=== PATIENT | female | born 1940 | race Caucasian/White ===

== ENCOUNTER 2019-10-16 14:41 | Inpatient (IN) | payer MEDICARE ==
[2019-10-16] MEDS ORDERED: hydrALAZINE 20 MG/ML VIAL SLOW IVP PRN (19:15)
[2019-10-16] MEDS ORDERED: Haloperidol Lactate 5 MG/ML VIAL IM PRN (19:15)
[2019-10-16] MEDS: Famotidine 20 MG TAB PO SCH (21:16)
[2019-10-16] MEDS: Apixaban 5 MG TAB PO SCH (21:16)
[2019-10-16] MEDS: Lisinopril 5 MG TAB PO SCH (21:16)
[2019-10-16] MEDS: Ciprofloxacin 500 MG TAB PO SCH (21:16)
[2019-10-16] MEDS: Atorvastatin Calcium 40 MG TAB PO SCH (21:16)
[2019-10-16] MEDS: Metoprolol Tartrate 25 MG TAB PO SCH (21:16)
[2019-10-17] MEDS: Ciprofloxacin 500 MG TAB PO SCH ×2 (05:57→20:28)
[2019-10-17] MEDS ORDERED: FLU VACC QS2019-20(6MOS UP)/PF 60 MCG/0.5 ML SYRINGE IM ONE (09:00)
[2019-10-17] MEDS: Lisinopril 5 MG TAB PO SCH ×2 (10:47→20:27)
[2019-10-17] MEDS: Metoprolol Tartrate 25 MG TAB PO SCH ×2 (10:47→20:27)
[2019-10-17] MEDS: Famotidine 20 MG TAB PO SCH ×2 (10:47→20:27)
[2019-10-17] MEDS: Apixaban 5 MG TAB PO SCH ×2 (10:47→20:28)
[2019-10-17] MEDS: Acetaminophen 325 MG TAB PO PRN (10:54)
[2019-10-17] MEDS: Nystatin 500,000 UNITS/5 ML UDCUP SSW SCH ×2 (18:22→20:26)
[2019-10-17] MEDS: Atorvastatin Calcium 40 MG TAB PO SCH (20:27)
[2019-10-18] MEDS: Ciprofloxacin 500 MG TAB PO SCH ×2 (05:30→21:01)
[2019-10-18] MEDS: Lisinopril 5 MG TAB PO SCH ×2 (10:34→21:01)
[2019-10-18] MEDS: Nystatin 500,000 UNITS/5 ML UDCUP SSW SCH ×4 (10:35→21:01)
[2019-10-18] MEDS: Metoprolol Tartrate 25 MG TAB PO SCH ×2 (10:35→21:01)
[2019-10-18] MEDS: Famotidine 20 MG TAB PO SCH ×2 (10:35→21:01)
[2019-10-18] MEDS: Apixaban 5 MG TAB PO SCH ×2 (10:35→21:01)
[2019-10-18] MEDS: Acetaminophen 325 MG TAB PO PRN (13:00)
[2019-10-18] MEDS: Atorvastatin Calcium 40 MG TAB PO SCH (21:01)
[2019-10-19] MEDS: Ciprofloxacin 500 MG TAB PO SCH ×2 (06:04→20:49)
[2019-10-19] MEDS: Famotidine 20 MG TAB PO SCH ×2 (08:36→20:49)
[2019-10-19] MEDS: Tamsulosin HCl 0.4 MG CAP PO SCH (08:36)
[2019-10-19] MEDS: Nystatin 500,000 UNITS/5 ML UDCUP SSW SCH ×4 (08:36→20:49)
[2019-10-19] MEDS: Metoprolol Tartrate 25 MG TAB PO SCH ×2 (08:38→20:49)
[2019-10-19] MEDS: Lisinopril 5 MG TAB PO SCH ×2 (08:38→20:49)
[2019-10-19] MEDS: Apixaban 5 MG TAB PO SCH ×2 (08:38→20:49)
[2019-10-19] MEDS: Polyethylene Glycol 3350 17 GM Packet PO PRN (13:42)
[2019-10-19] MEDS: Atorvastatin Calcium 40 MG TAB PO SCH (20:49)
[2019-10-20] MEDS: Ciprofloxacin 500 MG TAB PO SCH ×2 (05:09→20:39)
[2019-10-20] MEDS: Apixaban 5 MG TAB PO SCH ×2 (10:06→20:40)
[2019-10-20] MEDS: Metoprolol Tartrate 25 MG TAB PO SCH ×2 (10:06→20:40)
[2019-10-20] MEDS: Lisinopril 5 MG TAB PO SCH ×2 (10:06→20:38)
[2019-10-20] MEDS: Tamsulosin HCl 0.4 MG CAP PO SCH (10:06)
[2019-10-20] MEDS: Nystatin 500,000 UNITS/5 ML UDCUP SSW SCH ×4 (10:06→20:38)
[2019-10-20] MEDS: Famotidine 20 MG TAB PO SCH ×2 (10:06→20:39)
[2019-10-20] MEDS: Atorvastatin Calcium 40 MG TAB PO SCH (20:40)
[2019-10-21] MEDS: Ciprofloxacin 500 MG TAB PO SCH ×2 (06:03→20:39)
[2019-10-21] MEDS: Apixaban 5 MG TAB PO SCH ×2 (08:31→20:39)
[2019-10-21] MEDS: Nystatin 500,000 UNITS/5 ML UDCUP SSW SCH ×4 (08:31→20:50)
[2019-10-21] MEDS: Metoprolol Tartrate 25 MG TAB PO SCH ×2 (08:31→20:41)
[2019-10-21] MEDS: Tamsulosin HCl 0.4 MG CAP PO SCH (08:31)
[2019-10-21] MEDS: Famotidine 20 MG TAB PO SCH ×2 (08:31→20:37)
[2019-10-21] MEDS: Lisinopril 5 MG TAB PO SCH ×2 (08:31→20:40)
[2019-10-21] MEDS ORDERED: Haloperidol Lactate 5 MG/ML VIAL ONE (16:34)
[2019-10-21] MEDS: Atorvastatin Calcium 40 MG TAB PO SCH (20:39)
[2019-10-22] MEDS: Ciprofloxacin 500 MG TAB PO SCH ×2 (05:20→21:16)
[2019-10-22] MEDS: Apixaban 5 MG TAB PO SCH ×2 (08:20→21:20)
[2019-10-22] MEDS: Famotidine 20 MG TAB PO SCH ×2 (08:20→21:17)
[2019-10-22] MEDS: Nystatin 500,000 UNITS/5 ML UDCUP SSW SCH ×4 (08:21→21:16)
[2019-10-22] MEDS: Tamsulosin HCl 0.4 MG CAP PO SCH (08:21)
[2019-10-22] MEDS: Lisinopril 5 MG TAB PO SCH ×2 (08:29→21:20)
[2019-10-22] MEDS: Metoprolol Tartrate 25 MG TAB PO SCH ×2 (08:29→21:20)
[2019-10-22] MEDS: Atorvastatin Calcium 40 MG TAB PO SCH (21:20)
[2019-10-23] MEDS: Ciprofloxacin 500 MG TAB PO SCH ×2 (05:38→20:14)
[2019-10-23] MEDS: Lisinopril 5 MG TAB PO SCH ×2 (08:36→20:13)
[2019-10-23] MEDS: Famotidine 20 MG TAB PO SCH ×2 (08:36→20:13)
[2019-10-23] MEDS: Tamsulosin HCl 0.4 MG CAP PO SCH (08:36)
[2019-10-23] MEDS: Apixaban 5 MG TAB PO SCH ×2 (08:36→20:14)
[2019-10-23] MEDS: Metoprolol Tartrate 25 MG TAB PO SCH ×2 (08:36→20:13)
[2019-10-23] MEDS: Nystatin 500,000 UNITS/5 ML UDCUP SSW SCH ×4 (08:36→20:13)
[2019-10-23] MEDS: Acetaminophen 325 MG TAB PO PRN (10:06)
[2019-10-23] MEDS: Atorvastatin Calcium 40 MG TAB PO SCH (20:14)
[2019-10-24] MEDS: Metoprolol Tartrate 25 MG TAB PO SCH ×2 (09:41→20:38)
[2019-10-24] MEDS: Apixaban 5 MG TAB PO SCH ×2 (09:41→20:37)
[2019-10-24] MEDS: Lisinopril 5 MG TAB PO SCH ×2 (09:45→20:38)
[2019-10-24] MEDS: Nystatin 500,000 UNITS/5 ML UDCUP SSW SCH ×4 (09:46→20:38)
[2019-10-24] MEDS: Tamsulosin HCl 0.4 MG CAP PO SCH (09:46)
[2019-10-24] MEDS: Famotidine 20 MG TAB PO SCH ×2 (09:46→20:37)
[2019-10-24] MEDS: Acetaminophen 325 MG TAB PO PRN (20:37)
[2019-10-24] MEDS: Atorvastatin Calcium 40 MG TAB PO SCH (20:38)
--- NOTE | 2019-10-24 21:40 | CT ---
CT OF THE BRAIN WITHOUT CONTRAST: 10/24/19 Comparison is made with the prior CT of 10/07. Today's exam is done for a fall. No acute intracranial bleeding was seen. There is no extra-axial hematoma. The ventricles are normal in size for age and atrophy. A patchy area in the right posterior frontal region corresponds with a r ecent infarct seen on prior studies. The patient has had an infarct involving the cerebellum, particu larly on the left side, and while it is seen today, it is not seen nearly as well as it was on the pr ior images. The skull appears intact. The visible paranasal sinuses are clear. IMPRESSION: 1. No acute traumatic changes. No bleeding seen. 2. Infarcts and ischemic changes as noted above. PRELIMINARY REPORT TO FLOOR AT APPROXIMATELY 1700 ON 10/24/2019. POS: HOME
[2019-10-25] MEDS: Apixaban 5 MG TAB PO SCH ×2 (09:28→20:50)
[2019-10-25] MEDS: Famotidine 20 MG TAB PO SCH ×2 (09:28→20:50)
[2019-10-25] MEDS: Lisinopril 5 MG TAB PO SCH ×2 (09:28→20:51)
[2019-10-25] MEDS: Nystatin 500,000 UNITS/5 ML UDCUP SSW SCH ×4 (09:28→20:50)
[2019-10-25] MEDS: Metoprolol Tartrate 25 MG TAB PO SCH ×2 (09:28→20:50)
[2019-10-25] MEDS: Tamsulosin HCl 0.4 MG CAP PO SCH (09:28)
[2019-10-25] MEDS ORDERED: Haloperidol Lactate 5 MG/ML VIAL ONE (17:36)
[2019-10-25] MEDS: Haloperidol Lactate 5 MG/ML VIAL IM PRN (17:40)
[2019-10-25] MEDS: Atorvastatin Calcium 40 MG TAB PO SCH (20:50)
[2019-10-25] MEDS: Acetaminophen 325 MG TAB PO PRN (20:50)
[2019-10-26] MEDS: Tamsulosin HCl 0.4 MG CAP PO SCH (09:02)
[2019-10-26] MEDS: Lisinopril 5 MG TAB PO SCH ×2 (09:02→20:43)
[2019-10-26] MEDS: Famotidine 20 MG TAB PO SCH ×2 (09:02→20:32)
[2019-10-26] MEDS: Metoprolol Tartrate 25 MG TAB PO SCH ×2 (09:03→20:44)
[2019-10-26] MEDS: Nystatin 500,000 UNITS/5 ML UDCUP SSW SCH ×4 (09:03→20:31)
[2019-10-26] MEDS: Apixaban 5 MG TAB PO SCH ×2 (09:03→20:31)
[2019-10-26] MEDS ORDERED: Haloperidol Lactate 5 MG/ML VIAL ONE (10:50)
[2019-10-26] MEDS: Haloperidol Lactate 5 MG/ML VIAL IM PRN (10:54)
[2019-10-26] MEDS: ALPRAZolam 0.5 MG TAB PO PRN (14:23)
[2019-10-26] MEDS: Atorvastatin Calcium 40 MG TAB PO SCH (20:32)
[2019-10-27] MEDS: Lisinopril 5 MG TAB PO SCH ×2 (09:09→22:30)
[2019-10-27] MEDS: Apixaban 5 MG TAB PO SCH ×2 (09:09→22:27)
[2019-10-27] MEDS: Famotidine 20 MG TAB PO SCH ×2 (09:09→22:27)
[2019-10-27] MEDS: Metoprolol Tartrate 25 MG TAB PO SCH ×2 (09:10→22:30)
[2019-10-27] MEDS: Nystatin 500,000 UNITS/5 ML UDCUP SSW SCH ×4 (09:10→22:27)
[2019-10-27] MEDS: Tamsulosin HCl 0.4 MG CAP PO SCH (09:11)
[2019-10-27] MEDS ORDERED: Haloperidol Lactate 5 MG/ML VIAL ONE (12:17)
[2019-10-27] MEDS: Haloperidol Lactate 5 MG/ML VIAL IM PRN (12:22)
[2019-10-27] MEDS: Acetaminophen 325 MG TAB PO PRN (19:24)
--- NOTE | 2019-10-27 21:51 | RAD ---
RIGHT ELBOW TWO VIEWS: Date: 10-27-18 FINDINGS: No acute fracture or joint effusion was seen. Bony projections are seen from the lateral humeral cond yle which may be due to old trauma or ligamentous damage here. IMPRESSION: No acute bony findings. POS: HOME
--- NOTE | 2019-10-27 21:53 | RAD ---
RIGHT SHOULDER: Date: 10-27-18 FINDINGS: Multiple views show no findings or acute fracture or dislocation. The AC joint is not widened. A ho t bony density is seen along the medial aspect of the humeral neck. This may be due to an old injury but does not appear acute. IMPRESSION: No acute findings. POS: HOME
[2019-10-27] MEDS: Atorvastatin Calcium 40 MG TAB PO SCH (22:27)
[2019-10-28 01:16] LABS: Bilirubin Small (Negative); Blood, Urine Negative (Negative); Clarity Clear (Clear); Glucose, Urine (Dipstick) Negative (Negative); Leukocyte Negative (Negative); Nitrite Negative (Negative); Protein, Urine (Dipstick) Negative (Neg-Trace); Urobilinogen 0.2 mg/dL (Less than 2)
[2019-10-28 01:28] LABS: RBC/HPF 0-3 HPF (0-3)
[2019-10-28 01:29] LABS: Bacteria/HPF Rare-Few HPF (None Seen); Calcium Oxalate Crystals 1+ HPF (None Seen); Squamous Epithelial 0-3 HPF (0-3); Yeast-Budding Rare HPF (None Seen)
[2019-10-28] MEDS: Acetaminophen 325 MG TAB PO PRN (04:23)
[2019-10-28 05:15] LABS: Anion Gap 12 mmol/L (10-20); BUN (Urea Nitrogen) 18 mg/dL (9.8-20.1); Calc. Creatinine Clearance 53 mL/min (70-130); Calcium 9.5 mg/dL (7.8-10.44); Carbon Dioxide 25 mmol/L (23-31); Chloride 107 mmol/L (98-107); Estimated GFR-MDRD 52; Glucose 83 mg/dL (83-110); Potassium 4.3 mmol/L (3.5-5.1); Sodium 140 mmol/L (136-145)
[2019-10-28 05:43] LABS: Band 2 % (5-11); Eosinophils 1 % (0-10); Hemoglobin 14.6 g/dL (12.0-16.0); Lymphocytes 51 % (21-51); MDiff Complete? YES; Mean Corpuscular HGB CONC 32.5 g/dL (32.0-36.0); Mean Corpuscular Hemoglobin 28.2 pg (27.0-31.0); Mean Corpuscular Volume 86.7 fL (78.0-98.0); Mean Platelet Volume 8.7 fL (7.4-10.4); Monocytes 6 % (0-10); Neutrophil 39 % (42-75); Platelet Count 200 thou/uL (130-400); Platelet Morphology Comment Appears Adequate; RBC Distribution Width 11.7 % (11.5-14.5); RBC Morphology Normal; Red Blood Cell (RBC) Count 5.17 mill/uL (4.20-5.40); White Blood Cell (WBC) Count 5.4 thou/uL (4.8-10.8)
[2019-10-28] MEDS: Nystatin 500,000 UNITS/5 ML UDCUP SSW SCH ×5 (08:59→22:24)
[2019-10-28] MEDS: Famotidine 20 MG TAB PO SCH ×3 (08:59→22:23)
[2019-10-28] MEDS: Tamsulosin HCl 0.4 MG CAP PO SCH (08:59)
[2019-10-28] MEDS: Lisinopril 5 MG TAB PO SCH (09:00)
[2019-10-28] MEDS: Apixaban 5 MG TAB PO SCH ×3 (09:00→22:20)
[2019-10-28] MEDS: Metoprolol Tartrate 25 MG TAB PO SCH (09:01)
[2019-10-28] MEDS ORDERED: Sodium Chloride 0.9% 1,000 ML IV SCH (09:15)
[2019-10-28] MEDS ORDERED: Haloperidol Lactate 5 MG/ML VIAL ONE (11:16)
[2019-10-28] MEDS: Haloperidol Lactate 5 MG/ML VIAL IM PRN (11:20)
[2019-10-28] MEDS: ALPRAZolam 0.5 MG TAB PO PRN (12:40)
[2019-10-28] MEDS ORDERED: risperiDONE 0.5 MG TAB PO SCH (13:45)
[2019-10-28] MEDS: Atorvastatin Calcium 40 MG TAB PO SCH ×2 (22:11→22:23)
[2019-10-28] MEDS: risperiDONE 0.5 MG TAB PO SCH ×2 (22:12→22:24)
[2019-10-29] MEDS: Famotidine 20 MG TAB PO SCH ×2 (10:05→21:14)
[2019-10-29] MEDS: Tamsulosin HCl 0.4 MG CAP PO SCH (10:05)
[2019-10-29] MEDS: Nystatin 500,000 UNITS/5 ML UDCUP SSW SCH ×4 (10:05→21:16)
[2019-10-29] MEDS: risperiDONE 0.5 MG TAB PO SCH ×2 (10:06→21:15)
[2019-10-29] MEDS: Apixaban 5 MG TAB PO SCH ×2 (10:06→21:15)
[2019-10-29] MEDS: Acetaminophen 325 MG TAB PO PRN (13:40)
[2019-10-29] MEDS: ALPRAZolam 0.5 MG TAB PO PRN (13:40)
[2019-10-29] MEDS: Atorvastatin Calcium 40 MG TAB PO SCH (21:14)
[2019-10-30] MEDS: Tamsulosin HCl 0.4 MG CAP PO SCH (10:21)
[2019-10-30] MEDS: Famotidine 20 MG TAB PO SCH ×2 (10:21→20:43)
[2019-10-30] MEDS: Apixaban 5 MG TAB PO SCH ×2 (10:21→20:43)
[2019-10-30] MEDS: risperiDONE 0.5 MG TAB PO SCH ×2 (10:21→20:43)
[2019-10-30] MEDS: Nystatin 500,000 UNITS/5 ML UDCUP SSW SCH ×4 (10:21→20:44)
[2019-10-30] MEDS: ALPRAZolam 0.5 MG TAB PO PRN (11:48)
[2019-10-30] MEDS ORDERED: Haloperidol Lactate 5 MG/ML VIAL ONE (17:15)
[2019-10-30] MEDS: Haloperidol Lactate 5 MG/ML VIAL IM PRN (17:22)
[2019-10-30] MEDS: Atorvastatin Calcium 40 MG TAB PO SCH (20:44)
[2019-10-31] MEDS: Famotidine 20 MG TAB PO SCH ×2 (09:36→20:39)
[2019-10-31] MEDS: risperiDONE 0.5 MG TAB PO SCH ×2 (09:37→20:39)
[2019-10-31] MEDS: Tamsulosin HCl 0.4 MG CAP PO SCH (09:38)
[2019-10-31] MEDS: ALPRAZolam 0.5 MG TAB PO PRN ×2 (09:39→22:39)
[2019-10-31] MEDS: Nystatin 500,000 UNITS/5 ML UDCUP SSW SCH ×3 (09:40→17:34)
[2019-10-31] MEDS: Apixaban 5 MG TAB PO SCH ×2 (09:40→20:39)
[2019-10-31] MEDS: Atorvastatin Calcium 40 MG TAB PO SCH (20:39)
[2019-10-31] MEDS: Metoprolol Tartrate 25 MG TAB PO SCH (20:39)
[2019-11-01] MEDS: Metoprolol Tartrate 25 MG TAB PO SCH ×2 (09:03→20:51)
[2019-11-01] MEDS: Apixaban 5 MG TAB PO SCH ×2 (09:03→20:51)
[2019-11-01] MEDS: Tamsulosin HCl 0.4 MG CAP PO SCH (09:03)
[2019-11-01] MEDS: Famotidine 20 MG TAB PO SCH ×2 (09:03→20:50)
[2019-11-01] MEDS: risperiDONE 0.5 MG TAB PO SCH ×2 (09:05→20:51)
[2019-11-01] MEDS: ALPRAZolam 0.5 MG TAB PO PRN (14:14)
[2019-11-01] MEDS: Acetaminophen 325 MG TAB PO PRN (20:50)
[2019-11-01] MEDS: Atorvastatin Calcium 40 MG TAB PO SCH (20:51)
[2019-11-02] MEDS: ALPRAZolam 0.5 MG TAB PO PRN ×2 (08:36→20:31)
[2019-11-02] MEDS: Tamsulosin HCl 0.4 MG CAP PO SCH (08:36)
[2019-11-02] MEDS: Famotidine 20 MG TAB PO SCH ×2 (08:36→20:33)
[2019-11-02] MEDS: Metoprolol Tartrate 25 MG TAB PO SCH ×2 (08:37→20:33)
[2019-11-02] MEDS: risperiDONE 0.5 MG TAB PO SCH ×2 (08:37→20:32)
[2019-11-02] MEDS: Apixaban 5 MG TAB PO SCH ×2 (08:37→20:33)
[2019-11-02] MEDS: Atorvastatin Calcium 40 MG TAB PO SCH (20:33)
[2019-11-03] MEDS: Tamsulosin HCl 0.4 MG CAP PO SCH (09:02)
[2019-11-03] MEDS: Famotidine 20 MG TAB PO SCH ×2 (09:02→20:21)
[2019-11-03] MEDS: Metoprolol Tartrate 25 MG TAB PO SCH ×2 (09:02→20:22)
[2019-11-03] MEDS: risperiDONE 0.5 MG TAB PO SCH ×2 (09:02→20:21)
[2019-11-03] MEDS: Apixaban 5 MG TAB PO SCH ×2 (09:02→20:22)
[2019-11-03] MEDS: ALPRAZolam 0.5 MG TAB PO PRN (18:21)
[2019-11-03] MEDS: Atorvastatin Calcium 40 MG TAB PO SCH (20:22)
[2019-11-04 07:38] LABS: Hemoglobin 15.7 g/dL (12.0-16.0); Platelet Count 176 thou/uL (130-400)
[2019-11-04] MEDS: Metoprolol Tartrate 25 MG TAB PO SCH ×2 (08:24→20:18)
[2019-11-04] MEDS: risperiDONE 0.5 MG TAB PO SCH ×2 (08:24→20:18)
[2019-11-04] MEDS: Apixaban 5 MG TAB PO SCH ×2 (08:24→20:18)
[2019-11-04] MEDS: Tamsulosin HCl 0.4 MG CAP PO SCH (08:24)
[2019-11-04] MEDS: Famotidine 20 MG TAB PO SCH ×2 (08:25→20:18)
[2019-11-04] MEDS: ALPRAZolam 0.5 MG TAB PO PRN ×2 (08:29→20:17)
[2019-11-04] MEDS: Atorvastatin Calcium 40 MG TAB PO SCH (20:18)
[2019-11-05] MEDS: Famotidine 20 MG TAB PO SCH ×2 (09:07→22:18)
[2019-11-05] MEDS: Tamsulosin HCl 0.4 MG CAP PO SCH (09:07)
[2019-11-05] MEDS: ALPRAZolam 0.5 MG TAB PO PRN (09:08)
[2019-11-05] MEDS: Metoprolol Tartrate 25 MG TAB PO SCH ×2 (09:08→22:18)
[2019-11-05] MEDS: risperiDONE 0.5 MG TAB PO SCH ×2 (09:09→22:18)
[2019-11-05] MEDS: Apixaban 5 MG TAB PO SCH ×2 (09:09→22:17)
[2019-11-05] MEDS: Atorvastatin Calcium 40 MG TAB PO SCH (22:17)
[2019-11-06] MEDS: Famotidine 20 MG TAB PO SCH ×2 (09:08→20:09)
[2019-11-06] MEDS: Tamsulosin HCl 0.4 MG CAP PO SCH (09:08)
[2019-11-06] MEDS: Metoprolol Tartrate 25 MG TAB PO SCH ×2 (09:08→20:08)
[2019-11-06] MEDS: Apixaban 5 MG TAB PO SCH ×2 (09:08→20:08)
[2019-11-06] MEDS: risperiDONE 0.5 MG TAB PO SCH ×2 (09:08→20:08)
[2019-11-06] MEDS: Atorvastatin Calcium 40 MG TAB PO SCH (20:09)
[2019-11-06] MEDS: Acetaminophen 325 MG TAB PO PRN (21:41)
[2019-11-07] MEDS: Acetaminophen 325 MG TAB PO PRN (04:36)
[2019-11-07] MEDS: Famotidine 20 MG TAB PO SCH ×2 (08:45→22:32)
[2019-11-07] MEDS: Apixaban 5 MG TAB PO SCH ×2 (08:46→22:33)
[2019-11-07] MEDS: Tamsulosin HCl 0.4 MG CAP PO SCH (08:46)
[2019-11-07] MEDS: risperiDONE 0.5 MG TAB PO SCH ×2 (08:47→22:32)
[2019-11-07] MEDS: Metoprolol Tartrate 25 MG TAB PO SCH ×2 (08:47→22:33)
[2019-11-07] MEDS ORDERED: Haloperidol Lactate 5 MG/ML VIAL ONE (15:24)
[2019-11-07] MEDS: Haloperidol Lactate 5 MG/ML VIAL IM PRN (15:28)
[2019-11-07] MEDS: Atorvastatin Calcium 40 MG TAB PO SCH (22:32)
[2019-11-07] MEDS: Mirtazapine 15 MG TAB PO SCH (22:32)
[2019-11-08] MEDS: Apixaban 5 MG TAB PO SCH ×2 (09:08→20:35)
[2019-11-08] MEDS: Metoprolol Tartrate 25 MG TAB PO SCH ×2 (09:08→20:35)
[2019-11-08] MEDS: Famotidine 20 MG TAB PO SCH ×2 (09:08→20:35)
[2019-11-08] MEDS: risperiDONE 0.5 MG TAB PO SCH ×2 (09:09→20:35)
[2019-11-08] MEDS: Atorvastatin Calcium 40 MG TAB PO SCH (20:34)
[2019-11-08] MEDS: Mirtazapine 15 MG TAB PO SCH (20:35)
[2019-11-08] MEDS: Acetaminophen 325 MG TAB PO PRN (21:31)
[2019-11-09] MEDS: Acetaminophen 325 MG TAB PO PRN (02:21)
[2019-11-09] MEDS: risperiDONE 0.5 MG TAB PO SCH ×2 (10:59→22:06)
[2019-11-09] MEDS: Famotidine 20 MG TAB PO SCH ×2 (10:59→22:06)
[2019-11-09] MEDS: Metoprolol Tartrate 25 MG TAB PO SCH ×2 (11:00→22:07)
[2019-11-09] MEDS: Apixaban 5 MG TAB PO SCH ×2 (11:00→22:06)
[2019-11-09] MEDS: Atorvastatin Calcium 40 MG TAB PO SCH (22:06)
[2019-11-09] MEDS: Mirtazapine 15 MG TAB PO SCH (22:06)
[2019-11-10 04:33] LABS: #Basophils 0.1 thou/uL (0.0-0.2); #Eosinphils 0.2 thou/uL (0.0-0.7); #Monocytes 0.4 thou/uL (0.11-0.59); #Neutrophils 1.6 thou/uL (1.40-6.50); %Basophils 1.6 % (0.0-1.0); %Eosinophils 3.8 % (0.0-10.0); %Lymphocytes 46.7 % (21.0-51.0); %Neutrophils 37.9 % (42.0-75.0); Hemoglobin 13.6 g/dL (12.0-16.0); Mean Corpuscular HGB CONC 33.6 g/dL (32.0-36.0); Mean Corpuscular Hemoglobin 28.7 pg (27.0-31.0); Mean Corpuscular Volume 85.3 fL (78.0-98.0); Mean Platelet Volume 7.6 fL (7.4-10.4); Platelet Count 163 thou/uL (130-400); RBC Distribution Width 11.6 % (11.5-14.5); Red Blood Cell (RBC) Count 4.73 mill/uL (4.20-5.40); White Blood Cell (WBC) Count 4.3 thou/uL (4.8-10.8)
[2019-11-10 04:44] LABS: Anion Gap 12 mmol/L (10-20); BUN (Urea Nitrogen) 15 mg/dL (9.8-20.1); Calc. Creatinine Clearance 71 mL/min (70-130); Calcium 9.2 mg/dL (7.8-10.44); Carbon Dioxide 25 mmol/L (23-31); Chloride 108 mmol/L (98-107); Estimated GFR-MDRD 72; Glucose 83 mg/dL (83-110); Potassium 3.9 mmol/L (3.5-5.1); Sodium 141 mmol/L (136-145)
[2019-11-10] MEDS: Metoprolol Tartrate 25 MG TAB PO SCH ×2 (09:50→20:30)
[2019-11-10] MEDS: Famotidine 20 MG TAB PO SCH ×2 (09:50→20:29)
[2019-11-10] MEDS: Apixaban 5 MG TAB PO SCH ×2 (09:50→20:30)
[2019-11-10] MEDS: Polyethylene Glycol 3350 17 GM Packet PO PRN (09:53)
[2019-11-10] MEDS: risperiDONE 0.5 MG TAB PO SCH ×2 (10:05→20:30)
[2019-11-10] MEDS ORDERED: Fluconazole 100 MG TAB PO SCH (12:30)
[2019-11-10] MEDS: Acetaminophen 325 MG TAB PO PRN (20:29)
[2019-11-10] MEDS: Atorvastatin Calcium 40 MG TAB PO SCH (20:29)
[2019-11-10] MEDS: Mirtazapine 15 MG TAB PO SCH (20:30)
[2019-11-11] MEDS: Famotidine 20 MG TAB PO SCH ×2 (10:00→21:00)
[2019-11-11] MEDS: Fluconazole 100 MG TAB PO SCH (10:00)
[2019-11-11] MEDS: Polyethylene Glycol 3350 17 GM Packet PO PRN (10:00)
[2019-11-11] MEDS: Metoprolol Tartrate 25 MG TAB PO SCH ×2 (10:00→21:01)
[2019-11-11] MEDS: Apixaban 5 MG TAB PO SCH ×2 (10:00→21:01)
[2019-11-11] MEDS: risperiDONE 0.5 MG TAB PO SCH ×3 (10:03→21:04)
[2019-11-11] MEDS: Acetaminophen 325 MG TAB PO PRN (16:46)
[2019-11-11] MEDS: Atorvastatin Calcium 40 MG TAB PO SCH (21:01)
[2019-11-11] MEDS: Mirtazapine 15 MG TAB PO SCH (21:01)
[2019-11-12] MEDS: Apixaban 5 MG TAB PO SCH ×2 (08:37→20:44)
[2019-11-12] MEDS: Fluconazole 100 MG TAB PO SCH (08:37)
[2019-11-12] MEDS: risperiDONE 0.5 MG TAB PO SCH ×2 (08:37→20:44)
[2019-11-12] MEDS: Famotidine 20 MG TAB PO SCH ×2 (08:37→20:45)
[2019-11-12] MEDS: Metoprolol Tartrate 25 MG TAB PO SCH ×2 (08:39→20:45)
[2019-11-12] MEDS: Atorvastatin Calcium 40 MG TAB PO SCH (20:44)
[2019-11-12] MEDS: Mirtazapine 15 MG TAB PO SCH (20:44)
[2019-11-12] MEDS: ALPRAZolam 0.5 MG TAB PO PRN (21:31)
[2019-11-13] MEDS: Metoprolol Tartrate 25 MG TAB PO SCH ×2 (09:30→20:37)
[2019-11-13] MEDS: Apixaban 5 MG TAB PO SCH ×2 (09:31→20:38)
[2019-11-13] MEDS: Famotidine 20 MG TAB PO SCH ×2 (09:31→20:38)
[2019-11-13] MEDS: Fluconazole 100 MG TAB PO SCH (09:31)
[2019-11-13] MEDS: risperiDONE 0.5 MG TAB PO SCH ×2 (09:32→20:39)
[2019-11-13] MEDS: Atorvastatin Calcium 40 MG TAB PO SCH (20:38)
[2019-11-13] MEDS: Mirtazapine 15 MG TAB PO SCH (20:39)
[2019-11-14] MEDS: risperiDONE 0.5 MG TAB PO SCH ×2 (08:41→20:48)
[2019-11-14] MEDS: Famotidine 20 MG TAB PO SCH ×2 (08:41→20:48)
[2019-11-14] MEDS: Apixaban 5 MG TAB PO SCH ×2 (08:41→20:50)
[2019-11-14] MEDS: Fluconazole 100 MG TAB PO SCH (08:42)
[2019-11-14] MEDS: Metoprolol Tartrate 25 MG TAB PO SCH ×2 (08:42→20:52)
[2019-11-14] MEDS: Acetaminophen 325 MG TAB PO PRN (11:16)
[2019-11-14] MEDS: Mirtazapine 15 MG TAB PO SCH (20:49)
[2019-11-14] MEDS: Atorvastatin Calcium 40 MG TAB PO SCH (20:50)
[2019-11-15] MEDS: Famotidine 20 MG TAB PO SCH ×2 (08:53→20:22)
[2019-11-15] MEDS: Metoprolol Tartrate 25 MG TAB PO SCH ×2 (08:53→20:23)
[2019-11-15] MEDS: risperiDONE 0.5 MG TAB PO SCH ×2 (08:54→20:22)
[2019-11-15] MEDS: Fluconazole 100 MG TAB PO SCH (08:54)
[2019-11-15] MEDS: Apixaban 5 MG TAB PO SCH ×2 (08:55→20:23)
[2019-11-15] MEDS: Atorvastatin Calcium 40 MG TAB PO SCH (20:22)
[2019-11-15] MEDS: Mirtazapine 15 MG TAB PO SCH (20:23)
[2019-11-16] MEDS: Famotidine 20 MG TAB PO SCH ×2 (09:36→20:27)
[2019-11-16] MEDS: Metoprolol Tartrate 25 MG TAB PO SCH ×2 (09:36→20:28)
[2019-11-16] MEDS: Fluconazole 100 MG TAB PO SCH (09:37)
[2019-11-16] MEDS: risperiDONE 0.5 MG TAB PO SCH ×2 (09:38→20:27)
[2019-11-16] MEDS: Apixaban 5 MG TAB PO SCH ×2 (09:38→20:28)
[2019-11-16] MEDS: Acetaminophen 325 MG TAB PO PRN ×2 (12:38→20:26)
[2019-11-16 18:48] VITALS: TEMP 97.9
[2019-11-16] MEDS: ALPRAZolam 0.5 MG TAB PO PRN (20:24)
[2019-11-16] MEDS: Atorvastatin Calcium 40 MG TAB PO SCH (20:27)
[2019-11-16] MEDS: Mirtazapine 15 MG TAB PO SCH (20:28)
[2019-11-17 04:24] VITALS: BMI 26.4
[2019-11-17 05:59] VITALS: BP 116/65
[2019-11-17] MEDS: Metoprolol Tartrate 25 MG TAB PO SCH (09:06)
[2019-11-17] MEDS: Famotidine 20 MG TAB PO SCH (09:06)
[2019-11-17] MEDS: risperiDONE 0.5 MG TAB PO SCH (09:07)
[2019-11-17] MEDS: Apixaban 5 MG TAB PO SCH (09:08)
--- NOTE | 2019-11-17 19:24 | DIS ---
DATE OF ADMISSION: 11/05/2019 DATE OF DISCHARGE: 11/17/2019 CHIEF DIAGNOSES: 1. Status post bilateral cerebellar infarctions. 2. Dementia with behavioral disturbance. 3. Chronic atrial fibrillation, rate controlled on oral anticoagulation. 4. Hypertension. 5. 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 DISCHARGE DIAGNOSES: 1. Status post bilateral cerebellar infarctions. 2. Dementia with behavioral disturbance. 3. Chronic atrial fibrillation, rate controlled on oral anticoagulation. 4. Hypertension. 5. 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 6. Loss of weight/diminished appetite. PROCEDURES: 1. Last CBC performed on November 10, 2019, with white count 4.3 with 38% neutrophils and 47% lymphocytes, hemoglobin 13.6, hematocrit 40.4, and platelets 163. 2. Last basic metabolic profile performed prior to discharge November 10, 2019 with sodium 141, potassium 3.9, chloride 108, bicarb 25, BUN 15, creatinine 0.78 , glucose 83, and calcium 9.2. HISTORY AND PHYSICAL: This is a 79-year-old female with a past medical history of CVA with cerebellar infarct bilaterally, atrial fibrillation with controlled ventricular rate and a recent hospitalization for acute metabolic encephalopathy, which was improved as well as a remote history of a cerebrovascular accident on the right MCA distribution in November of 2018, hypertension, and hyperlipidemia, who was transferred for custodial care from an outside facility for physical, occupational, and speech therapy. During her custodial course, physical therapy evaluated the patient as well as occupational therapy and throughout her stay showed better participation in therapy, but still required max cues due to short attention span. The patient also has persisting issues with visual perception and severe dysarthria, but was ambulating 10 to 38 feet with rolling walker, minimal assist. Regarding her dysphagia, Speech Therapy evaluated the patient and recommended that she is continued on a pureed diet with nectar thickened liquids, which she tolerated well. Her stay here was complicated by dementia with behavioral disturbance that was finally controlled with Risperdal 0.25 mg b.i.d. She also had mirtazapine added 15 mg at bedtime due to loss of weight of approximately 17 pounds since her admission. This stabilized with the addition of the mirtazapine and she had no adverse effects beyond a little lethargy in the a.m. that quickly resolved after a day. She also had some symptoms of urinary retention during her visit with feeling of incomplete emptying and positive postvoid residual that necessitated straight catheterization. Started tamsulosin, and the condition improved. She had no signs of urinary tract infection. Tamsulosin was discontinued several days prior to discharge with no recurrence of the urinary retention. The patient seemed to be better once her therapy persisted to the point that she was able to void on the toilet rather than a bedside commode. The family, therapy, and staff are in agreement that the patient will benefit from long-term care and the patient has been accepted to a long-term care facility. She will be discharged today on her current medications. MEDICATIONS: 1. Acetaminophen 650 mg p.o. q.4 hours p.r.n. headache or mild pain. 2. Alprazolam 0.25 mg p.o. b.i.d. p.r.n. anxiety. 3. Eliquis 5 mg p.o. b.i.d. 4. Atorvastatin 40 mg p.o. at bedtime. 5. Pepcid 20 mg p.o. b.i.d. for GI stress ulcer prophylaxis, may be discontinued in the future if no issues. 6. Haldol 5 mg IM q.12 hours p.r.n. agitation or combativeness. 7. Hydralazine 10 mg slow IV push q.6 hours p.r.n. systolic blood pressure greater than 180 or diastolic blood pressure greater than 100. 8. Metoprolol tartrate 12.5 mg p.o. b.i.d. 9. Mirtazapine 15 mg p.o. at bedtime. 10. MiraLAX 17 g p.o. daily p.r.n. constipation. 11. Seroquel 25 mg p.o. at bedtime p.r.n., agitation. 12. Risperdal 0.25 mg p.o. b.i.d. FOLLOWUP: Followup will be at long-term care facility with the accepting provider. Job ID: [id number] MTDD
--- NOTE | 2019-11-19 21:23 | PQF ---
Flaco Ragsdale KRISTEL DO [id number] CLINICAL DOCUMENTATION CLARIFICATION FORM: POST DISCHARGE Addendum to original discharge summary date: 11/17/19 Late entry note date: 11/22/19 Date:11/19/2019 ATTN: LAVONNE SHANE DO Please exercise your independent, professional judgment in responding to the clarification form. Clinical indicators are provided on the bottom of this form for your review Please check appropriate box(s): [x ] Protein Calorie Malnutrition: [ ] Mild [ ] Moderate [ x ] Severe [ ] Other Malnutrition (please specify) __ [ ] Underweight without malnutrition [ ] Cachexia [ ] Other diagnosis [ ] Unable to determine In addition, please specify: Present on Admission (POA): [ ] Yes [ x ] No [ ] Unable to determine CLINICAL INDICATORS - SIGNS / SYMPTOMS / LABS BMI-27.1-Documented in FNS assessment Loss of weight/diminished appetite-Documented in Discharge summary on 11/17 by Lavonne Shane DO Dysphagia-Documented in Discharge summary on 11/17 by Lavonne Shane DO Loss of weight of approximately 17 pounds since her admission-Documented in Discharge summary on 11/17 by Lavonne Shane DO RISK FACTORS Dysphagia-Documented in Discharge summary on 11/17 by Lavonne Shane DO Status post cerebrovascular accident in november 2018-Documented in Discharge summary on 11/17 by Lavonne Shane DO TREATMENT: General/Healthful diet, Suppl comm [place]-Documented in FNS assessment Continue regular diet with consistency per MEDICAL RESEARCH ASSOCIATE to encourage PO intake- Documented in FNS assessment Provide Ensure Enlive BID between meals if pt will accept-Documented in FNS assessment She also had mirtazapine added 15 mg at bedtime -Documented in Discharge summary on 11/17 by Lavonne Shane DO Continued on a pureed diet with nectar thickened liquids which she tolerated well-Documented in Discharge summary on 11/17 by Lavonne Shane DO Moderate Malnutrition (in acute illness) Energy Intake: <75% of estimated energy requirement for > 7 days Weight Loss: 1-2%/1 week; 5%/ 1 month; 7.5%/3 months Other: mild body fat loss; mild muscle mass loss; mild fluid accumulation; Severe Malnutrition (in acute illness) Energy Intake: < 50% of estimated energy requirement for > 5 days Weight Loss: >1-2%/1 week; >5%/1 month; >7.5%/3 months Other: moderate body fat loss; moderate muscle mass loss; moderate- severe fluid accumulation; measurably reduced research and development scientist strength Moderate Malnutrition (in chronic illness) Energy Intake: <75% of estimated energy requirement for >1 month Weight Loss: 5%/1 month; 7.5%/3 months; 10%/6 months; 20%/1 year Other: mild body fat loss; mild muscle mass loss; mild fluid accumulation Severe Malnutrition (in chronic illness) Energy Intake: <75% of estimated energy requirement for >1 month Weight Loss: >5%/1 month; >7.5%/3 months; >10%/6 months; >20%/1 year Other: severe body fat loss; severe muscle mass loss; severe fluid accumulation ; measurably reduced research and development scientist strength [employer] Nurse [employer] Win[employer] Viewer (This form is maintained as a part of the permanent medical record) 2014 [employer]. All Rights Reserved [email or web address] [phone] [email or web address]
== END 2019-11-17 10:08 | DRG 56 ==
LOC: UNDOADMIN 14:55 → BURMED 14:55 → UNDOADMIN 11-01 15:41 → BURMED 11-01 15:41
PROVIDERS: ADMIT Family Medicine; ATTEND Family Medicine
DX: I69.322 Dysarthria following cerebral infarction (principal); E43 Unspecified severe protein-calorie malnutrition; F03.91 Unspecified dementia, unspecified severity, with behavioral disturbance; I48.19 Other persistent atrial fibrillation; N39.0 Urinary tract infection, site not specified; R33.9 Retention of urine, unspecified; I69.391 Dysphagia following cerebral infarction; R13.10 Dysphagia, unspecified; I10 Essential (primary) hypertension; R63.4 Abnormal weight loss; Z68.26 Body mass index [BMI] 26.0-26.9, adult; E78.5 Hyperlipidemia, unspecified; F43.21 Adjustment disorder with depressed mood; S00.81XA Abrasion of other part of head, initial encounter; W19.XXXA Unspecified fall, initial encounter; B96.4 Proteus (mirabilis) (morganii) as the cause of diseases classified elsewhere
CPT/HCPCS: 36415; 70450; 80048; 81001; 85014; 85018; 85025; 85049; 87086; A4353; J1630